=== PATIENT | male | born 1980 | race Caucasian/White ===

== ENCOUNTER 2016-07-18 20:00 | Inpatient (IN) | payer OTHER ==
--- NOTE | ~2016-07-18 | PA ---
Unit #: [id number] #: [id number] Patient: PRANAV JIANG [id number] [facility] [address] [place] [address] [id number] I MR#: [id number] NAME: PRANAV JIANG. ROOM: P210 Age: 36 Sex: M Admission Date: 07/18/2016 : 1980 Date of Assessment: Attending Physician: Torito Anaya M.D. Admitting Physician: Torito Anaya M.D. PSYCHIATRIC ASSESSMENT INFORMANT The patient reliability, fair informant; chart reliability, good. CHIEF COMPLAINT Detox and substance abuse. HISTORY OF PRESENT ILLNESS Mr. Pranav Jiang is a 36-year-old male, presented with using half a gram of heroin daily, last use was 07/17/2016. The patient reported having withdrawal symptoms, scored 15 on COWS score; restlessness; agitation; sweating; joint aches; and diarrhea. The patient reported one-fourth of IV methamphetamine one to two times per month, the patient reported last use a week ago. The patient reported smoking a joint once a month. Denied any suicidal or homicidal ideation. Denied any psychotic symptom. The patient reported tobacco use, age of onset 13; marijuana, age of onset 16; opiate, age of onset 33; amphetamine, age of onset 35. Needing inpatient admission. Currently, having muscle cramping, diarrhea, irritability, restlessness, and poor appetite. PAST PSYCHIATRIC HISTORY Unremarkable for any history of previous treatment except history of treatment at [facility] and [facility]. FAMILY HISTORY AND SOCIAL HISTORY Poor support system. No history of abuse. MEDICAL HISTORY Remarkable for hepatitis C. Musculoskeletal; muscle strength and tone, no atrophy or abnormal movement. Gait normal. MEDICATION HISTORY None. ALLERGIES No known drug allergies. SUBSTANCE ABUSE HISTORY Please see above. REVIEW OF SYSTEMS HEENT: Eyes; clear. Ears, nose, mouth, and throat; clear. CARDIOVASCULAR: Unremarkable. RESPIRATORY: Unremarkable. Unit #: [id number] #: [id number] Patient: PRANAV JIANG GI: Unremarkable. : Unremarkable. SKIN: Unremarkable. LYMPH NODE: Unremarkable. NEUROLOGIC: Unremarkable. ENDOCRINE: Unremarkable. HEMATOLOGIC: Unremarkable. ALLERGIC/IMMUNOLOGIC: Unremarkable. MUSCULOSKELETAL: Muscle strength and tone, no atrophy or abnormal movement. Gait normal. MENTAL STATUS EXAMINATION CONSTITUTIONAL: Measurement of vital signs; temperature 98.4, pulse 67, respirations 18, oxygen saturation 97%, blood pressure 135/75, height 6 feet 2 inches, weight 182 pounds. GENERAL APPEARANCE: The patient dressed casually. The patient did not show any facial deformity. MUSCULOSKELETAL: Please see above. PSYCHIATRIC EXAMINATION Description of speech; regular rate, normal volume, normal articulation, coherent. Description of thought process, goal directed. Description of association, intact. Description of abnormal psychotic thinking; the patient denied any hallucination or delusions, but withdrawal symptom and substance abuse. Description of the patient's judgment, concerning everyday activity, poor. Social situation, poor. Concerning psychiatric condition, poor. Complete mental status examination; oriented in time, place, and person. Recent and remote memory, fair. Attention span and concentration, fair. Language; able to name object and repeat phrases. Fund of knowledge; aware of current event and past history. Vocabulary, intact. Mood and affect; sad and dysphoric. Insight and judgment, fair to poor. ASSETS AND LIABILITIES Assets; the patient is articulate and able to take care of his ADL. Liability; history of substance abuse. ADMITTING DIAGNOSES Psychiatric: Opiate use disorder, severe, F11.20; amphetamine use disorder, [id number], F15.20; mood disorder, not otherwise specified, F32.9. Secondary diagnosis: Deferred. Medical diagnosis: Hepatitis C. Stressors: Psychosocial stressor. PSYCHIATRIC PLAN 1. Advised to admit the patient on the inpatient unit. Provide safe, supportive, and structured environment. 2. Ordered labs; CBC, CMP, UA, and UDS. 3. Detox protocol and detox monitoring. 4. The patient to attend all the programing, group therapy, individual therapy, family session if possible, and CD group. TREATMENT GOAL Unit #: [id number] #: [id number] Patient: PRANAV JIANG To attain euthymic mood, gain insight into his problem, and learn coping skills. DISCHARGE PLAN Plan to stabilize the patient and consider followup in outpatient program. ESTIMATED LENGTH OF STAY 3 to 5 days. Dictated by... Torito Anaya M.D. FRANCES/abdoulaye TD: 07/19/2016 15:49 JOB #: [id number] PSYCHIATRIC ASSESSMENT Page 1 of 1 X Torito Anaya MD PSYCHIATRIC ASSESSMENT
--- NOTE | ~2016-07-18 | DS ---
Unit #: [id number] #: [id number] Patient: PRANAV OSORIO [id number] [facility] [address] [place] [address] [id number] MR#: [id number] NAME: PRANAV OSORIO. ROOM: P210 Age: 36 Sex: M Admission Date: 07/18/2016 : 1980 Discharge Date: 07/19/2016 Attending Physician: Torito Anaya M.D. Primary Care Physician: Primary Care Physician No DISCHARGE SUMMARY REASON FOR ADMISSION Detox, substance abuse. DIAGNOSTIC STUDIES LABORATORY RESULTS: None. HOSPITAL COURSE The patient was admitted to inpatient unit on 07/18/2016 and discharged on 07/19/2016. The patient was treated with group therapy, individual therapy, psychoeducation. The patient showed improvement. Denied any thoughts of harming self or others or any psychotic symptom. The patient was subsequently discharged with a plan to follow up in outpatient program. At the time of discharge, the patient was not psychotic or any suicidal. DISCHARGE DIAGNOSES Psychiatric: Opioid use disorder, severe, F11.20; amphetamine use disorder, moderate, F15.20; mood disorder, not otherwise specified, F32.9. Secondary diagnosis: Deferred. Medical diagnosis: Hepatitis C. Stressors: Psychosocial stressors. DISCHARGE INSTRUCTIONS The patient to follow up in outpatient clinic as per social media content specialist. CONDITION ON DISCHARGE The patient was pleasant and cooperative. Denied any psychotic symptom or any suicidal ideation. PROGNOSIS Guarded. DIET AND ACTIVITY As tolerated. Dictated by... Torito Anaya M.D. SZ/modl Unit #: [id number] #: [id number] Patient: PRANAV OSORIO TD: 07/27/2016 14:13 JOB #: [id number] DISCHARGE SUMMARY Page 1 of 1 X Torito Anaya MD X DISCHARGE SUMMARY
--- NOTE | ~2016-07-18 | HP ---
Unit #: [id number] #: [id number] Patient: RPANAV OSORIO [id number] [place] [address] [id number] MR#: [id number] NAME: PRANAV OSORIO. ROOM: P210 Age: 36 Sex: M Admission Date: 07/18/2016 : 1980 Attending Physician: Torito Anaya M.D. Admitting Physician: Torito Anaya M.D. Primary Care Physician: Primary Care Physician No HISTORY AND PHYSICAL HISTORY OF PRESENT ILLNESS Pranav is a 36-year-old male admitted on 07/18/[address] [place] [address] for detox from heroin. PAST MEDICAL HISTORY Epilepsy. PAST SURGICAL HISTORY None. SOCIAL HISTORY Smokes 1 pack of cigarettes daily. No alcohol use. Does report daily heroin use. He is currently and homeless. FAMILY HISTORY Noncontributory. REVIEW OF SYSTEMS CONSTITUTIONAL: No fever or chills. HEENT: Denies any sore throat, ear pain or runny nose. CARDIOVASCULAR: Denies chest pain, irregular heart rhythm or palpitations. CHEST: Denies shortness of breath or cough. No hemoptysis. GASTROINTESTINAL: Denies nausea, vomiting, diarrhea or chronic constipation. ENDOCRINE: Denies history of increased thirst or urination. No recent significant weight loss or gain. GENITOURINARY: Denies dysuria, frequency, or hematuria. SKIN: Denies any rashes. HEMATOLOGIC: Denies history of increased bleeding or bruising. MUSCULOSKELETAL: Denies any hot, swollen joints. No generalized muscle pain. NEUROLOGIC: Denies problems with vision or speech. No frequent, severe headaches. No numbness, tingling or weakness in any extremities. Denies loss of bladder or bowel control. CURRENT MEDICATIONS None. ALLERGIES None. PHYSICAL EXAMINATION GENERAL: Alert, oriented, no acute distress. Unit #: [id number] #: [id number] Patient: PRANAV OSORIO VITAL SIGNS: Blood pressure 135/85, heart rate 70. HEIGHT: 6 feet 2. WEIGHT: 182 pounds. SKIN: Warm, dry. No rashes or lesions, track ruiz, cuts, etc. HEENT: Normocephalic. TMs not viewed. Oronasal passages clear. Conjunctivae clear. PERRLA. EOM is intact. NECK: No lymphadenopathy or thyromegaly. HEART: Regular rate and rhythm. No murmur, gallop, or rub. LUNGS: Clear to auscultation bilaterally. ABDOMEN: Soft, nontender without palpable masses or hepatosplenomegaly. : Not assessed. EXTREMITIES: No evidence of cyanosis, clubbing, or edema. Moves all extremities independently without obvious deficit. NEUROLOGICAL: Grossly within normal limits. Cranial Nerves: II: Visual law are intact. III, IV AND : Extraocular movements are intact. Pupils are equal, round and reactive to light. V: Facial sensation is grossly normal. VII: Facial movements and expression are normal. VIII: Auditory acuity grossly intact. IX, X: Uvula is midline. Phonation is normal. XI: Patient shrugs shoulders and turns head normally. XII: Tongue protrudes in the midline. Sensory and Motor Function: Sensory and motor sensation is grossly normal. Motor: moves all extremities well. Coordination: Gait is normal. Deep Tendon Reflexes: Intact. IMPRESSION 1. Psychiatric admission. 2. Hepatitis C. RECOMMENDATIONS PSYCHIATRIC: Per psychiatrist. MEDICAL: No contraindication to participate in this facility's activities. MEDICAL PROGNOSIS Good. MEDICAL CONDITION Stable. Dictated by... Emeterio Bush/lizeth TD: 07/19/2016 14:42 JOB #: [id number] Unit #: [id number] #: [id number] Patient: PRANAV OSORIO HISTORY AND PHYSICAL Page 1 of 1 X TOSHA GARCIA APRN X HISTORY AND PHYSICAL
[~2016-07-18 20:00] MED LIST: AVELOX400 MG PO; BACTRIM DS TABL1 TA1 PO; CLEOCIN PO; FLEXERIL10 MG PO; IBUPROFEN PO; IBUPROFEN800 MG PO; KEFLEX500 M1 PO; LIORESAL10 MG PO; MOBIC PO; NEURONTIN100 MG PO; NO MEDICATIONS; PEN-VEE K PO; PSEUDOEPHEDRINE; TYLENOL #3 PO; ULTRAM PO; VICODIN 5/500 T1 TAB PO; VISCOUS XYLOCAINE; VOLTAREN75 MG PO; [UNRECOGNIZED DRUG - OTHER]
[2016-07-19 11:51] LABS: URINE APPEARANCE CLEAR; URINE BILIRUBIN NEG (NEG); URINE BLOOD NEG (NEG); URINE COLOR YELLOW; URINE GLUCOSE NEG (NEG); URINE KETONE NEG (NEG); URINE LEUKOCYTE ESTERASE NEG (NEG); URINE NITRATE NEG (NEG); URINE PROTEIN NEG (NEG); URINE SPECIFIC GRAVITY 1.004 (1.003-1.035); URINE UROBILINOGEN 0.2 MG/DL (NEG)
[2016-07-19 12:17] LABS: AMPHETAMINE POS (NEG); BARBITURATES NEG (NEG); BENZODIAZEPINES NEG (NEG); COCAINE NEG (NEG); MARIJUANA POS (NEG); OPIATES NEG (NEG); TRICYCLIC ANTIDEPRESSANTS NEG (NEG); U METHADONE NEG (NEG)
== END 2016-07-19 14:05 | DRG 897 ==
LOC: P2S 21:27
PROVIDERS: Psychiatry & Neurology Psychiatry
PROC: HZ2ZZZZ Detoxification Services for Substance Abuse Treatment (ICD-10-PCS; principal; 2016-07-18)
DX: F11.20 Opioid dependence, uncomplicated (principal); F15.20 Other stimulant dependence, uncomplicated; F39 Unspecified mood [affective] disorder; B19.20 Unspecified viral hepatitis C without hepatic coma; F17.200 Nicotine dependence, unspecified, uncomplicated
CPT/HCPCS: 80307; 81003